=== PATIENT | male | born 1990 | race African-American/Black ===

== ENCOUNTER 2017-11-05 15:07 | Emergency (ER) | payer OTHER ==
[~2017-11-05] VITALS: Ht 172.7 cm; Wt 76.3 kg
[2017-11-05 16:20] VITALS: BP 141/85
[2017-11-05 16:32] LABS: SOURCE URINE
[2017-11-06 13:12] LABS: CHLAMYDIA TRACHOMATIS NEGATIVE; NEISSERIA GONORRHOEAE NEGATIVE
== END 2017-11-05 16:44 | disposition home or self-care (01) ==
LOC: EME 15:07
PROVIDERS: Nurse Practitioner Family
DX: Z20.2 Contact with and (suspected) exposure to infections with a predominantly sexual mode of transmission (principal); S30.812A Abrasion of penis, initial encounter
CPT/HCPCS: 87491; 87591; 99281; 99283; J0696